=== PATIENT | female | born 1975 | race Caucasian/White ===

== ENCOUNTER 2024-03-03 19:41 | Emergency (ER) | payer MEDICAID ==
[~2024-03-03] VITALS: Ht 160 cm; Wt 81.6 kg
[2024-03-03 19:52] VITALS: BP_SYST 148; PULSE 78; RESP 18; TEMP 98.7; O2SAT 98
[2024-03-03 20:06] VITALS: BP_SYST 148; PULSE 78; RESP 18; TEMP 98.7; O2SAT 98
== END 2024-03-03 20:00 | disposition left against medical advice (07) ==
LOC: SED 19:41
DX: F10.10 Alcohol abuse, uncomplicated (principal); Y90.9 Presence of alcohol in blood, level not specified
CPT/HCPCS: 99281